=== PATIENT | male | born 1995 | race Caucasian/White ===

== ENCOUNTER 2017-04-12 21:39 | Emergency (ER) | payer BC ==
[~2017-04-12] VITALS: Ht 177.8 cm; Wt 80.4 kg
[2017-04-12 21:44] VITALS: BP 131/68; PULSE 87; TEMP 37.1; O2SAT 97; Ht 177.8 cm; Wt 80.4 kg
[2017-04-12] MEDS ORDERED: MONT1TAB3 PO (22:08)
[2017-04-12] MEDS ORDERED: CEPH500C PO (22:30)
--- NOTE | 2017-04-13 00:57 | EMERGENCY ROOM VISIT NOTE ---
History First contact with patient: 21:48 Chief Complaint: ABRASION Stated Complaint: BLISTER ON KNEE Nursing Triage Summary: see triage note History of Present Illness The patient is a 21 year old male who presents to the Emergency Room with complaints of a wound on his right anterior knee. The patient reports that he scraped his knee 3 weeks ago. He initially cleansed the wound, then applied an antibiotic ointment until it scabbed over. The patient reports that the scab fell off 2 days ago, and has now developed a blister where the scab was. He has not noticed any significant pain or surrounding redness. Review of Systems 10 system review was performed and was negative except for pertinent positives and negatives as indicated in history of present illness Past Medical/Surgical History Medical Problems: (1) Asthma (2) Mononucleosis Surgical Problems: (1) History of arthroscopic knee surgery Family History No significant family history Social History Smoking Status: Never Smoker Alcohol Use: none Marital Status: single Housing Status: lives with family Occupation Status: [employer] Current/Historical Medications Scheduled Cephalexin Monohydrate (Keflex), 500 MG PO QID Montelukast Sodium (Singulair), 10 MG PO DAILY Physical Exam Vital Signs Date Time Temp Pulse Resp B/P (MAP) Pulse Ox O2 Delivery O2 Flow Rate FiO2 04/12/17 21:44 37.1 87 18 131/68 97 Room Air Pain Rating (0-10): 0 Physical Exam CONSTITUTIONAL: Healthy and well nourished. Alert and oriented X 3 with positive affect. HEENT: Normocephalic, atraumatic. Pupils equal, round and reactive. NECK: Full active range of motion without discomfort. MUSCULOSKELETAL: Examination of the right anterior knee shows a small seroma measuring 1 cm in diameter. There is minimal peripheral erythema without surrounding induration. No purulent effusion noted. No joint effusion appreciated. INTEGUMENTARY: No rash or other significant dermatologic conditions noted. NEUROLOGIC: No focal neurologic deficits noted. Medical Decision & Procedures ED Course Patient history and physical exam were performed. Nurse's notes were reviewed. Vital signs were reviewed and were normal. A bacitracin pressure dressing was applied to the wound. The patient was encouraged to avoid popping the blister over the next few days. If the blister persists or worsens, he was instructed to should he start to develop any surrounding erythema, or develop any significant pain, he was provided a written prescription for Keflex as well. He may follow-up with [facility] as needed, or return to the emergency department as needed. The patient was happy with plan of care, and voiced understanding of all discharge instructions. Medical Decision Medication Reconcilliation Current Medication List: was personally reviewed by me Blood Pressure Screening Patient's blood pressure: Normal blood pressure Impression Primary Impression: Right knee seroma Departure Information Dispostion Home / Self-Care Prescriptions Cephalexin Monohydrate (Keflex) 500 Mg Cap 500 MG PO QID for 7 Days, #28 CAP Prov: Carmelo Talavera PA 04/12/17 Forms HOME CARE DOCUMENTATION FORM, IMPORTANT VISIT INFORMATION Patient Instructions My [facility] Additional Instructions Apply pressure dressing for the next 48 hours. Keep wound clean and covered with an antibiotic ointment, plus or minus dressing. If the blister appears to be getting bigger after 2 days, pop it and continue to apply an antibiotic ointment and dressing. If you start to develop any significant surrounding redness, start your Keflex antibiotics as prescribed. Return to the emergency department for any worsening condition.
== END 2017-04-12 22:40 | disposition home or self-care (01) ==
LOC: C.EDB 21:42 → C.EDD 22:40
DX: L76.34 Postprocedural seroma of skin and subcutaneous tissue following other procedure (principal); J45.909 Unspecified asthma, uncomplicated; Z96.659 Presence of unspecified artificial knee joint